=== PATIENT | male | born 1950 | race Caucasian/White ===

== ENCOUNTER 2018-04-21 05:10 | Inpatient (IN) | payer MEDICARE ==
[~2018-04-21] VITALS: Ht 185.4 cm; Wt 72.6 kg
[~2018-04-21 05:10] MED LIST: ARIXTRA; COLACE100 MG PO; IRON325; OXYCODONE HCL 55 MG PO; PERCOCET 5-3251 EACH PO; SIMVASTATIN20 MG PO
[2018-04-21 05:14] VITALS: BP 162/94
[2018-04-21] MEDS ORDERED: ASPIR 8181 MG PO (05:25)
[2018-04-21 05:49] LABS: HEMATOCRIT 46.1 % (42.0-52.0); HEMOGLOBIN 15.5 gm/dL (14.0-18.0); MCH 31.1 pg (26.0-34.0); MCHC 33.7 g/dL (28.0-37.0); MCV 92.5 fL (80.0-100.0); MPV 7.2 fl. (7.2-11.1); RBC 4.99 mil/uL (4.50-6.00); RDW-CV 13.8 % (10.5-14.5); WBC 8.1 thou/uL (4.0-11.0)
[2018-04-21 06:21] LABS: ANION GAP 10 mmol/L (7-16); BUN 13 mg/dL (7-18); CALCIUM 9.6 mg/dL (8.5-10.1); CHLORIDE 101 mmol/L (98-107); CO2 28 mmol/L (21-32); CREATININE 0.9 mg/dL (0.6-1.3); GLUCOSE 94 mg/dL (70-99); POTASSIUM 3.7 mmol/L (3.5-5.1); SODIUM 139 mmol/L (136-145)
[2018-04-21 06:29] LABS: TROPONIN-I LEVEL <0.06 ng/mL (<0.06)
[2018-04-21 09:43] VITALS: BP 128/82
[2018-04-21 12:17] VITALS: BP 117/63
--- NOTE | 2018-04-21 13:38 | EKG ---
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 : 1950 Requested By: Jhonathan Laird Order Number: [id number] MD: Steven Hargrove Measurements Intervals [place] Rate: 79 P: VT: QRS: -9 QRSD: 90 T: 81 QT: 375 QTc: 430 Interpretive Statements Atrial flutter with predominant 4:1 AV block Borderline repolarization abnormality No previous ECG available for comparison Electronically Signed On 04-21-2018 13:38:44 CDT by Steven Hargrove [email or web address] <ELECTRONICALLY SIGNED> By: Steven Hargrove MD, [facility] 04/21/18 1338 0 0 Steven Hargrove MD, [facility] /EPI
[2018-04-21 16:00] VITALS: BP 109/69
[2018-04-21 20:00] VITALS: BP 123/68
[2018-04-22] VITALS: BP 134/79
[2018-04-22 04:00] VITALS: BP 119/70
[2018-04-22 04:45] LABS: ABSOLUTE LYMPHOCYTES 1.9 thou/uL (0.8-5.3); ABSOLUTE MONOCYTES 0.9 thou/uL (0.0-1.2); BASOPHILS 0.3 %; EOSINOPHILS 0.3 %; HEMATOCRIT 40.8 % (42.0-52.0); HEMOGLOBIN 13.8 gm/dL (14.0-18.0); LYMPHOCYTES 19.2 %; MCH 31.4 pg (26.0-34.0); MCHC 33.8 g/dL (28.0-37.0); MONOCYTES 9.3 %; MPV 7.4 fl. (7.2-11.1); NUCLEATED RBCS 0 /100WBC; PLATELET COUNT* 231 thou/uL (150-400); POLYS 70.9 %; RBC 4.38 mil/uL (4.50-6.00); RDW-CV 13.9 % (10.5-14.5); WBC 9.8 thou/uL (4.0-11.0)
[2018-04-22 05:10] LABS: CALCIUM 8.9 mg/dL (8.5-10.1); CREATININE 0.8 mg/dL (0.6-1.3); POTASSIUM 3.3 mmol/L (3.5-5.1)
[2018-04-22 08:30] VITALS: BP 140/70
[2018-04-22 11:06] VITALS: BP 140/70
--- NOTE | 2018-04-22 12:40 | EKG ---
[place] [address] ELECTROCARDIOGRAM REPORT Name: GIOVANNY ARTEAGA Room: [address] DIS IN M.R.#: [id number] Admission: 04/21/18 Attend Phys: Zeferino Camarena MD Discharge: 04/22/18 Date of : 48 Report #: [id number] THIS REPORT FOR: //name// 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
--- NOTE | 2018-04-22 13:30 | CON ---
[address] [address] CONSULTATION Name: GIOVANNY ARTEAGA Room: [address] IN M.R.#: [id number] Admission: 04/21/18 Attend Phys: Zeferino Camarena MD Discharge: 04/22/18 Date of : 48 Report #: [id number] THIS REPORT FOR: //name// CC: Zeferino George MD DATE OF SERVICE: 04/21/2018 HISTORY OF PRESENT ILLNESS: The patient is a 67-year-old white male who I was asked to see in the hospital today after he was noted to be in atrial fibrillation. The history is obtained from the patient. He states he has had intermittent atrial fibrillation since he was 49 years old. He was cardioverted in the past and placed on Rythmol and warfarin. He had recurrent atrial fibrillation, apparently was placed on amiodarone. However, in 2003, he underwent an ablation in [place], [place]. He has done well since that time. He apparently has remained in sinus rhythm predominantly. However, he notes about once a year, he will develop an irregular heartbeat that will last up to a day. He stays fairly active. He is currently followed by Dr. Chand, a automatic clipper, here in [place]. He has had a stress test in the past, but no history of coronary artery disease. He has not seen Dr. Chand for about 3 years. He has been doing well recently. He gets up once a night to urinate. Last night, he got up to urinate; apparently, he slipped on a rug and fell. He struck his head. His brought him here to [place]. He was noted to have ecchymosis of the right eye. He required stitches over his right eyelid. He currently denies any other pain other than eye pain. In the Emergency Room, he was noted to be in atrial fibrillation. He was started on IV diltiazem. He did note his heart was beating irregular. However, he has had no recent chest pain, shortness of breath, palpitations or syncope. PAST MEDICAL HISTORY: He has had back surgery, hip surgery. He has a history of hyperlipidemia, but no history of diabetes or hypertension. CURRENT MEDICATIONS: Include only simvastatin and aspirin a day. ALLERGIES: HE HAS INTOLERANCE TO HYDROMORPHONE, HYDROCODONE, CIPRO, APPARENTLY EXACERBATED HIS TACHYCARDIA. FAMILY HISTORY: Negative for heart disease. SOCIAL HISTORY: He is . He and his live in [place], [place]. 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 He does not smoke. He has about 2 beers a day. Denies illicit drug use. Does not drink caffeine. REVIEW OF SYSTEMS: He has had no history of stroke. He had asthma as a child. No history of peptic ulcer disease, liver disease, kidney disease[place] [address] CONSULTATION Name: GIOVANNY ARTEAGA Room: [address] IN M.R.#: [id number] Admission: 04/21/18 Attend Phys: Zeferino Camarena MD Discharge: 04/22/18 Date of : 48 Report #: [id number] premalignant skin lesion removed in the past. No psychiatric illness. PHYSICAL EXAMINATION: GENERAL: Revealed a middle-aged male lying in bed, he appeared in no distress. VITAL SIGNS: Blood pressure 140/80, pulse is 80 and irregular. He is afebrile. HEENT: He was anicteric. Left conjunctiva was pink. His mucous membranes appear dry. NECK: Veins do not appear distended. No carotid bruits. Neck was supple. CHEST: Clear to auscultation. CARDIOVASCULAR: Irregular rhythm. No significant murmurs. ABDOMEN: Soft. He did have a marble-sized firm, nontender ecchymotic area in the right lower quadrant. EXTREMITIES: Had no edema. Posterior tibial pulses 2+ bilaterally. SKIN: Cool, warm and moist. NEUROLOGIC: Nonfocal. LYMPH: No adenopathy. MUSCULOSKELETAL: No joint effusions. PSYCHIATRIC: Mood somewhat depressed. His ECG on admission showed what appears to be atrial flutter with a controlled ventricular response, nonspecific ST-segment changes. Workup in the Emergency Room, he had portable chest x-ray that showed normal heart size, clear lung lopez. CT scan of the head without contrast was performed that showed right periorbital soft tissue swelling, but no fracture. No other acute abnormality. His lab work in the Emergency Room: Sodium 139, potassium 3.7, creatinine 0.9, glucose 94. Liver function studies were normal. Troponin 0.06. BNP 728. White blood cell count 8.1, hemoglobin 15.5. IMPRESSION AND RECOMMENDATIONS: 1. Atrial fibrillation. Suspect related to recent trauma. Currently, on IV diltiazem for rate control. The patient has a CHADS-VASc score of 0. I would continue an aspirin a day. If he fails to convert, we will consider antiarrhythmic therapy. 2. Recent fall with trauma to the right periorbital area requiring stitches. 3. Hyperlipidemia. The patient is on a statin drug. <ELECTRONICALLY SIGNED> By: Steven Hargrove MD, [facility] 04/22/18 1330 1021 [id number] Hargrove MD, [facility] /nt
== END 2018-04-22 11:56 | disposition home or self-care (01) | DRG 988 ==
LOC: M.ERS 05:10 → M.TBA-ER 08:08 → M.2W 09:53
PROVIDERS: Emergency Medicine Emergency Medical Services; ADMIT Internal Medicine
PROC: 0JQ10ZZ Repair Face Subcutaneous Tissue and Fascia, Open Approach (ICD-10-PCS; principal; 2018-04-21)
DX: I48.92 Unspecified atrial flutter (principal); D68.59 Other primary thrombophilia; S01.111A Laceration without foreign body of right eyelid and periocular area, initial encounter; E78.5 Hyperlipidemia, unspecified; I48.91 Unspecified atrial fibrillation; W01.198A Fall on same level from slipping, tripping and stumbling with subsequent striking against other object, initial encounter; Z21 Asymptomatic human immunodeficiency virus [HIV] infection status; Y93.89 Activity, other specified; Z87.891 Personal history of nicotine dependence; Y92.091 Bathroom in other non-institutional residence as the place of occurrence of the external cause; Y99.8 Other external cause status; Z79.82 Long term (current) use of aspirin; Z79.899 Other long term (current) drug therapy; Z88.1 Allergy status to other antibiotic agents; Z88.8 Allergy status to other drugs, medicaments and biological substances